=== PATIENT | female | born 1950 | race Caucasian/White ===

== ENCOUNTER 2019-07-05 08:29 | Day surgery (SDC) | payer MEDICARE ==
[~2019-07-05 08:29] MED LIST: Midazolam 1 MG/ML 2 ML SDV ONE; Propofol 200 MG/20 ML SDV ONE; fentaNYL 100 MCG/2 ML SDV ONE
[2019-07-05] MEDS ORDERED: Dextrose 5%-Lactated Ringers 1,000 ML IV SCH (09:00)
--- NOTE | 2019-07-11 13:57 | OR ---
DATE OF PROCEDURE: 07/05/2019 SURGEON: Kirk Galvan MD PREOPERATIVE DIAGNOSIS: Indications for screening colonoscopy. POSTOPERATIVE DIAGNOSIS: Prominent area of bulging mucosa in the cecum of uncertain etiology. OPERATIVE PROCEDURE: A flexible colonoscopy with biopsies of area of bulging mucosa in the cecum. ANESTHESIA: IV sedation. INDICATION FOR PROCEDURE: A 68-year-old presenting for a screening colonoscopy. Plan was to proceed with a colonoscopy with biopsies and/or polypectomies if indicated. Potential risks including bleeding and perforation were discussed, and the patient wishes to proceed. DETAILS OF PROCEDURE: The patient was taken to the operating room, placed in a left lateral decubitus position. The initial digital rectal exam was performed and was unremarkable. The colonoscope was passed through the rectum with retroflexion revealing uncomplicated hemorrhoidal columns. The scope was eventually passed to the level of the cecum. The prep was fairly good. There was only a small amount of liquid stool present. To that level, there were no areas of diverticular disease or areas of colitis. In the cecum somewhat above the ileocecal valve, there was a small area of the mucosa that appeared to be somewhat raised. There was not a distinct change in the mucosal appearance and my suspicion was we were dealing with an underlying lipoma with this being somewhat prominent, however, multiple mucosal biopsies were obtained to rule out a sessile polyp. Minimal bleeding from the biopsy sites was seen and the scope then withdrawn. Apart from that, there were no abnormalities noted. We will await the pathology report. If this is only mucosa, I think one can assume this was a submucosal lipoma and routine screening colonoscopy could be repeated in 10 years. If it is an adenomatous polyp however, the patient would likely need to have a right colectomy. We will contact the patient when pathology becomes available. Kirk Galvan MD /[id number]
== END 2019-07-05 12:15 | disposition home or self-care (01) ==
LOC: JP.SDS 08:29
PROVIDERS: ATTEND Surgery
DX: Z12.11 Encounter for screening for malignant neoplasm of colon (principal); K52.9 Noninfective gastroenteritis and colitis, unspecified
CPT/HCPCS: 45380; 88305; J2250; J2704; J3010; J7121

== ENCOUNTER 2021-06-20 06:23 | Day surgery (SDC) | payer MEDICARE ==
[2021-06-20] MEDS ORDERED: Lactated Ringers 1,000 ML IV SCH (07:00)
[2021-06-20] MEDS ORDERED: Nozin Nasal Sanitizer NASBOTH ONE (07:00)
[2021-06-20] MEDS ORDERED: fentaNYL 250 MCG/5 ML SDV ONE (07:10)
[2021-06-20] MEDS ORDERED: Propofol 200 MG/20 ML SDV ONE (07:11)
[2021-06-20] MEDS ORDERED: Ondansetron 4 MG/2 ML SDV ONE (07:11)
[2021-06-20] MEDS ORDERED: Rocuronium 50 MG/5 ML Vial ONE (07:11)
[2021-06-20] MEDS ORDERED: Glycopyrrolate 0.2 MG/ML 5 ML MDV ONE (07:11)
[2021-06-20] MEDS ORDERED: Neostigmine Methylsulfate 1 MG/ML 5 ML Syringe ONE (07:11)
[2021-06-20] MEDS ORDERED: Succinylcholine 200 MG/10 ML MDV ONE (07:11)
[2021-06-20] MEDS ORDERED: Dexamethasone 4 MG/ML SDV ONE (07:11)
[2021-06-20] MEDS ORDERED: ceFAZolin 1 GM in Sodium Chloride 0.9% 50 ML IV ONE (07:30)
[2021-06-20] MEDS ORDERED: ceFAZolin 1 GM in Premix Bag 1 BAG IV ONE (07:30)
[2021-06-20] MEDS ORDERED: Bupivacaine 0.5% 30 ML SDV ONE ×2 (08:05→08:06)
[2021-06-20] MEDS ORDERED: Labetalol 20 MG/4 ML Syringe ONE (08:06)
--- NOTE | 2021-06-20 09:42 | OR ---
DATE OF PROCEDURE: 06/20/2021 SURGEON: Mahesh Alvarado MD PREOPERATIVE DIAGNOSIS: 1. Lateral meniscus tear, right knee. 2. Chondromalacia, medial and lateral femoral condyles. POSTOPERATIVE DIAGNOSES: 1. Lateral meniscus tear, right knee, complex. 2. Chondromalacia, tricompartmental, grade 3 and 4. PROCEDURES: Arthroscopy, right knee, with partial lateral meniscectomy and chondroplasty, medial femoral condyle, lateral femoral condyle, and patella. ANESTHESIA: General. INDICATIONS: Desi is a 70-year-old female with a history of progressive pain in the lateral aspect of her right knee. She has failed conservative treatment. X-rays reveal mild joint space collapse. MRI shows complex tear of the lateral meniscus as well as chondromalacia of lateral femoral condyle with some minor changes of the medial femoral condyle. I had a long discussion of treatment options including further conservative treatment, arthroscopic debridement, and arthroplasty. The patient wishes to avoid chondroplasty at this time if at all possible. She is aware that this condition is likely to progress and require further intervention at some point. Risks, benefits, potential complications were discussed. DESCRIPTION OF PROCEDURE: After adequate anesthesia was obtained, the patient was placed supine with a tourniquet about the right upper thigh. Right leg was prepped and draped in a sterile fashion. Leg was exsanguinated and tourniquet inflated to 300 mmHg pressure. Standard inferior, medial, and lateral portals were established. Scope was introduced. Patellofemoral joint was inspected, which revealed grade 3 changes over a small portion of the patellar dome with some surrounding grade 2. No full-thickness loss was noted. Medial compartment showed an intact meniscus, however, extensive grade 3 and early grade 4 changes of the medial femoral condyle with some loose articular flaps around the periphery of the defect. Shaver was used to perform a chondroplasty removing the loose articular flaps. All loose fragments were removed. ACL and PCL were intact. Lateral compartment revealed a complex tear of the lateral meniscus with degenerative fraying and horizontal cleavage component in the posterior horn and fairly extensive grade 3 and early grade 4 changes of the femoral condyle. Shaver was used to debride the meniscus back to a stable margin, removing only minimal amount, particularly on the tibial surface of the posterior horn of the lateral meniscus. Fraying of the anterior horn was also noted, which was debrided. Chondroplasty performed over the lateral femoral condyle, removing the loose articular flaps. Returning to the patellofemoral joint, chondroplasty performed over the patella, again removing just the loose articular fragments. Knee was taken through range of motion. Patella tracking was noted, which was adequate. All loose fragments were removed. Knee was drained. The scope was withdrawn. Port sites were closed with 3-0 Monocryl and Steri-Strips. The port sites and knee were then infiltrated with 0.5% Marcaine. Sterile dressing was applied. The patient tolerated the procedure well with no complications. Taken from the operating room in stable condition. Mahesh Alvarado MD /[id number]
--- NOTE | 2021-06-20 16:43 | PCM.EKG ---
#1 Interpretation EKG Date: 06/20/21 Time: 07:13 Rhythm: NSR Rate (Beats/Min): 62 [place]: Normal P-Wave: Present QRS: Normal ST-T: Normal QT: Normal DE/PQ Interval: normal Comparison: NA - No Prior EKG
== END 2021-06-20 10:12 | disposition home or self-care (01) ==
LOC: JP.SDS 06:23
PROVIDERS: ATTEND Specialist
DX: S83.271A Complex tear of lateral meniscus, current injury, right knee, initial encounter (principal); M94.261 Chondromalacia, right knee; E78.5 Hyperlipidemia, unspecified; Z98.890 Other specified postprocedural states; E66.9 Obesity, unspecified; Z68.29 Body mass index [BMI] 29.0-29.9, adult
CPT/HCPCS: 29881; 36415; 80053; 85027; 93005; A9270; J0330; J0690; J1100; J2405; J2704; J2710; J3010; J3490; J7120